=== PATIENT | female | born 1945 | race Caucasian/White ===

== ENCOUNTER 2023-03-31 13:00 | Outpatient (RCR) | payer MEDICARE, BC, SELFPAY | END 2023-07-29 23:59 | disposition home or self-care (01) | PROVIDERS: PCP Family Medicine; Visit Provider Family Medicine | DX: H81.12 Benign paroxysmal vertigo, left ear (principal); R26.89 Other abnormalities of gait and mobility; Z51.89 Encounter for other specified aftercare | CPT/HCPCS: 95992; 97110; 97140; 97162; 97535 ==

== ENCOUNTER 2024-06-15 16:45 | Outpatient (RCR) | payer MEDICARE, BC, SELFPAY | END 2024-10-09 15:55 | disposition home or self-care (01) | PROVIDERS: PCP Family Medicine; Visit Provider Family Medicine | DX: H81.11 Benign paroxysmal vertigo, right ear (principal); Z51.89 Encounter for other specified aftercare | CPT/HCPCS: 95992; 97110; 97140; 97161 ==

== ENCOUNTER 2024-09-07 16:45 | Outpatient (RCR) | payer MEDICARE, BC, SELFPAY ==
--- NOTE | 2024-08-24 12:12 | PT.OPEX ---
[facility] PT [facility] Out[facility] Eval Start: 08/24/24 07:24 Freq: Status: Active Protocol: Document 08/24/24 07:24 SEAN (Rec: 08/24/24 12:09 SEAN [id number]) E-signed By Cristóbal Holman DPT Physical Therapy Outpatient Evaluation Insurance Information Insurance Name Medicare B,[employer] Medical Diagnosis left foot and ankle pain Treating Diagnosis left ankle pain muscle weakness Referring MD Brooks beverly Subjective Subjective Felicitas comes into clinic dealing with L ankle pain post trip and fall she had in mid July when walking down stairs at a restaurant. She twisted her left ankle and had some bruising. Went to urgent care where Xray showed no pippa damage. Was able to go on her trip to [place] where she was able to walk alot however would get sore at the end of the day. Now most of her pain she feels is in the arch of her foot if she stands or walks too long. Pain Comments -05/10 Current Work Status Retired Objective Other/Pertinent Objective FOOT ALIGNMENT/GAIT no antalgic pattern noted - shoes with insoles for arch support ANKLE ROM WNL LE MMT Dorsiflexion/heel walk: L 5/5 Plantarflexion/toe walk: L4+ / 5 INV: L 4/5 ELIDIA: L4+/5 Great Toe Extension: R4/5 JOINT MOBILITY/PALPATION increased pain with palpation to plantar fascia and intrinsic of foot. Assessment Assessment/Impression Pt is a 78 yr old female who presents with concerns of L ankle pain post fall. Patient also has notable objective findings including increased muscle tension, impaired stability, decreased strength also likely contributing to the problem. Patient is a good candidate for skilled therapy to target deficits described above. Skilled PT intervention is necessary for use of therapeutic exercise manual therapy, neuromuscular re- education, gait training, and therapeutic activity. Functional impairments include difficulty with: walking standing stairs . See appropriate sections of PT eval for complete list of goals and POC. D/C plan and criteria is for pt to achieve the goals as listed below or until max rehab potential is met. Pt was agreeable with plan of care and goals established. Plan of Care Rehabilitation Potential Good Physical Therapy Goals GOALS Pt will be independent with HEP within 6-8 weeks to allow for independence and continued improvement past formal therapy Patient will demonstrate/ report ability to walk for 45- 60 minutes with pain level <1/ 10, to allow for community and household ambulation within 6 -8 weeks Patient will demonstrate/ report ability to stand for 30 -45 minutes with pain level <1 /10, to allow for home , recreational and work tasks within 6-8 weeks Coordination/Communication With Referral Source Treatment Plan/Direct Interventions Gait Training,Joint Mobilization,Manual Therapy, Neuromuscular Re-ed,Self-Care/ Home Management,Therapeutic Activities,Therapeutic Exercises Frequency/Duration 1-2 visits a week for 6-8weeks Patient Will Be Discharged From Therapy Completion of LTG(s), Independent w/HEP, Independently Progressing Evaluation Billing Untimed Code Treatment Minutes 25 Complexity Low Certification Information Initial Certification Date 08/24/24 Ending Certification Date 11/22/24 Provider Signature Required Yes Provider Signature Shows Agreement With POC & Medical Necessity Physician NPI Number Write NPI# Here Physician Comment/Change : Physician Signature & Date Requested Please Sign/Date Here
== END 2024-12-18 08:39 | disposition home or self-care (01) ==
PROVIDERS: PCP Family Medicine; Visit Provider Physician Assistant Surgical
DX: M25.572 Pain in left ankle and joints of left foot (principal); M79.672 Pain in left foot; S99.922A Unspecified injury of left foot, initial encounter; M62.81 Muscle weakness (generalized); Z51.89 Encounter for other specified aftercare
CPT/HCPCS: 97110; 97161

== ENCOUNTER 2025-08-06 09:45 | Outpatient (RCR) | payer MEDICARE, BC, SELFPAY | END 2025-08-09 10:52 | disposition home or self-care (01) | PROVIDERS: PCP Family Medicine; Visit Provider Family Medicine | DX: Z71.1 Person with feared health complaint in whom no diagnosis is made (principal); Z51.89 Encounter for other specified aftercare | CPT/HCPCS: 97165; 97535 ==